=== PATIENT | female | born 1980 | race Caucasian/White ===

== ENCOUNTER 2021-01-09 10:29 | Observation (INO) | payer SELFPAY ==
[2021-01-09] VITALS (10 sets, daily range): BP systolic 124–161; BP diastolic 74–115; PULSE 80–108; RESP 16–22; TEMP 36.3–37; O2SAT 97–99; BMI 40.3
--- NOTE | 2021-01-09 10:53 | XRR_ITS ---
PROCEDURE INFORMATION: Exam: XR Chest Exam date and time: 01/09/2021 10:53 AM Age: 40 years old Clinical indication: Pain; Radiating; Patient HX: History--cp that radiates around lt shoulder and to the upper back on the lt side. PT states it worsens upon inspiration; Additional info: Chest pain TECHNIQUE: Imaging protocol: XR of the chest. Views: 1 view. Total images: 1 COMPARISON: No relevant prior studies available. FINDINGS: Lungs: Nonspecific left lung base opacity favors atelectasis or pneumonia. Pleural spaces: Unremarkable. No pleural effusion. No pneumothorax. Heart/Mediastinum: Unremarkable. No cardiomegaly. Bones/joints: Unremarkable. XR/XR chest 1V portable [id number] IMPRESSION: Nonspecific left lung base opacity favors atelectasis or pneumonia. Radiation Dose CTDIVOL = (mGy): DLP = (mGy-cm)
--- NOTE | 2021-01-09 10:53 | ECG_ITS ---
[facility] Test Date: 2021-01-09 Pat Name: Annelise Cervantes Department: Room: Gender: Female Pharmacy Student: : 1980 Requested By: Jaiden Lam Order Number: [id number] Roma MD: Tobi Riojas M.D. Measurements Intervals [place] Rate: 88 P: 53 AR: 160 QRS: -5 QRSD: 97 T: 34 QT: 337 QTc: 408 Interpretive Statements SINUS RHYTHM POSSIBLE RIGHT VENTRICULAR CONDUCTION DELAY [RSR (QR) IN V1/V2] No previous ECG available for comparison Electronically Signed On 01-11-2021 13:22:28 DIRECTOR OF INTELLIGENCE by Tobi Riojas M.D. [email or web address] [email or web address] [email or web address]/[id number]
--- NOTE | 2021-01-09 11:04 | W.ED.CHESTPA ---
HPI - Chest Pain General: Chief Complaint: Chest Pain Stated Complaint: R SHOULDER PAIN THROUGH TO BACK, SEEN BY DOC X 2 Time Seen by Provider: 01/09/21 11:02 History of Present Illness: HPI narrative: Ms. Cervantes is a 40-year-old lady without significant past medical history who presents to the emergency department due to chest pain or shortness of breath. Symptoms began approximately 2 weeks ago and she describes initial URI which subsequently moved down to her chest. Congestion, cough, generalized malaise. She saw her primary care provider was given an inhaler, short course of antibiotics and steroids and that seemed to improve however on Tuesday she subsequently developed left anterior chest pain which is sharp and worse with movement and deep inspiration. Intensity of symptoms is moderate. Course has been worsening. She struggled last night to be comfortable enough to sleep and had to sleep in a chair. No similar episodes in the past. Does have positive family history for blood clots. No other specific changes in health, exacerbating, or alleviating factors identified. Review of Systems General: Reports: 10 or more systems reviewed and unremarkable except in HPI and below PFSH ED PFSH: Medical History (Updated 01/12/21 @ 23:51 by Mahamed Jiang MD) Tobacco dependency Surgical History (Updated 01/09/21 @ 16:31 by Patric Lambert MD) History of tonsillectomy Family History Other CAD (coronary artery disease) Social History (Updated 01/09/21 @ 16:33 by Patric Lambert MD) Smoking and tobacco status: current every day smoker Alcohol intake: never Physical Exam Narrative: EXAM NARRATIVE: GENERAL/CONSTITUTIONAL - somewhat ill-appearing. Uncomfortable. Eyes - PERRL, no conjunctival injection ENMT - Atraumatic external nose and ears. Moist mucous membranes NECK - supple. trachea midline CARDIOVASCULAR - regular rate and rhythm. Peripheral pulses 2+ and equal RESPIRATORY -coarse to auscultation bilaterally. Increased respiratory rate. ABDOMEN/GI - Nontender/Nondistended. MSK - Extremities without obvious deformity or tenderness to palpation SKIN - Warm, Dry NEURO - alert and appropriately oriented. Moves all extremities equally. Course ED course: - Patient was seen and evaluated by me at bedside - Patient placed on cardiac monitors, IV access obtained - Initial evaluation notable for uncomfortable appearing. Worse chest pain with deep inspiration. -Symptom treatment ordered - Labs notable for leukocytosis. No significant electrolyte abnormality. Negative troponin and normal BNP. Covid negative. Given patient's description of symptoms and relatively unimpressive x-ray as noted D-dimer ordered and was elevated. - Imaging notable for ED read of x-ray without significant finding. Radiology read with possible pneumonia on the left lower lobe. Given elevated D-dimer CTA warranted and notes bilateral pulmonary embolisms with likely left lower lobe pulmonary infarction. - Upon serial reexamination after treatment the patient was mildly improved though did require repeat analgesia. -Lovenox ordered - Based on patient history, evaluation, labs, and imaging as interpreted the most likely cause of the patient's condition is multiple pulmonary embolisms with pulmonary infarction - The results of ED evaluation were discussed with the patient including plan for admission due to requirement for level of care not available if discharged to prevent significant worsening/deterioration. -Hospitalist service contacted and agreed admit the patient. - Patient was admitted without further deterioration or significant events. Vital Signs: Vital signs: Vital Signs Temperature 98.4 F 01/10/21 07:20 Pulse Rate 110 H 01/10/21 07:20 Respiratory Rate 18 01/10/21 08:37 Blood Pressure 112/75 01/10/21 07:20 Pulse Oximetry 93 01/10/21 07:20 MDM - Chest Pain Medical Records: Attestation: I reviewed the patient's medical records. Lab Data: Attestation: I reviewed the patient's lab results. Labs: Lab Results 01/09/21 01/09/21 01/09/21 11:35 11:35 11:35 WBC 15.3 10^3/uL H 10 ^3/uL (4.0-10.0) RBC 4.45 10^6/uL 10^6 /uL (4.1-5.3) Hgb 12.2 g/dL g/dL (11.5-15.3) Hct 38.1 % % (37.0-47.0) MCV 85.6 fl fl (81-99) MCH 27.4 pg L pg (28.0-34.0) MCHC 32.0 g/dL g/dL (30.0-36.0) RDW 13.7 % % (12.1-15.1) Plt Count 288 10^3/cmm 10^3 /cmm (130-400) MPV 9.3 fL fL (7.4-10.4) Neut % (Auto) 74.6 % % Lymph % (Auto) 16.1 % % Faulkner % (Auto) 8.0 % % Eos % (Auto) 0.4 % % Baso % (Auto) 0.4 % % Neut # (Auto) 11.42 10^3/uL H 1 0^3/uL (1.8-7.7) Lymph # (Auto) 2.5 10^3/uL 10^3/ uL (0.8-4.8) Faulkner # (Auto) 1.2 10^3/uL H 10^ 3/uL (0.2-0.9) Eos # (Auto) 0.1 10^3/uL 10^3/ uL (0.0-0.8) Baso # (Auto) 0.1 10^3/uL 10^3/ uL (0.0-0.1) Nucleated RBC % (a uto) 0 % % Nucleated RBCs # 0.0 /100WBC /100W BC D-Dimer Sodium 136 mmol/L mmol/L (136-145) Potassium 4.3 mmol/L mmol/L (3.5-5.1) Chloride 104 mmol/L mmol/L (98-107) Carbon Dioxide 23 mmol/L mmol/L (22-29) Anion Gap 13.3 (5-19) BUN 12 mg/dL mg/dL (6-20) Creatinine 0.6 mg/dL mg/dL (0.5-0.9) GFR Calculation 111.3 mL/min mL/m in (90-130) Glucose 82 mg/dL mg/dL (65-115) Calculated Osmolal ity 281 mOsm/kg L mOs m/kg (285-295) Calcium 9.1 mg/dL mg/dL (8.5-10.5) Troponin T Baselin e 6 ng/L ng/L (0-10) Troponin T 120 Min [place] Delta Troponin T NT-Pro-B Natriuret Pep Lipase 26 U/L U/L (13-60) HCG, Qual 01/09/21 01/09/21 01/09/21 11:35 11:35 11:35 WBC RBC Hgb Hct MCV MCH MCHC RDW Plt Count MPV Neut % (Auto) Lymph % (Auto) Faulkner % (Auto) Eos % (Auto) Baso % (Auto) Neut # (Auto) Lymph # (Auto) [place] # (Auto) Eos # (Auto) Baso # (Auto) Nucleated RBC % (a uto) Nucleated RBCs # D-Dimer 1.62 ug/mIFEU H u g/mIFEU (0-0.59) Sodium Potassium Chloride Carbon Dioxide Anion Gap BUN Creatinine GFR Calculation Glucose Calculated Osmolal ity Calcium Troponin T Baselin e Troponin T 120 Min [place] Delta Troponin T NT-Pro-B Natriuret Pep 15 pg/mL pg/mL (0-125) Lipase HCG, Qual Negative (Negative) 01/09/21 13:44 WBC RBC Hgb Hct MCV MCH MCHC RDW Plt Count MPV Neut % (Auto) Lymph % (Auto) [place] % (Auto) Eos % (Auto) Baso % (Auto) Neut # (Auto) Lymph # (Auto) [place] # (Auto) Eos # (Auto) Baso # (Auto) Nucleated RBC % (a uto) Nucleated RBCs # D-Dimer Sodium Potassium Chloride Carbon Dioxide Anion Gap BUN Creatinine GFR Calculation Glucose Calculated Osmolal ity Calcium Troponin T Baselin e Troponin T 120 Min [place] 6.00 ng/L ng/L (0-10) Delta Troponin T 0 ABS# ABS# (0-10) NT-Pro-B Natriuret Pep Lipase HCG, Qual EKG Data^: EKG 1: Attestation: I personally reviewed and interpreted this EKG as follows: EKG interpretation date: 01/09/21 EKG interpretation time: 11:33 Interpretation: BorderlineTwelve-lead EKG shows a regular rhythm at a rate of 88. GA interval 160, QRS duration 97, QTc 382. Borderline axis. Interpretation: Sinus rhythm with nonspecific abnormalities. Discharge Plan Discharge Patient Disposition: Admitted As Inpatient Admit Provider: Patric Lambert Clinical Impression: Pulmonary emboli, Chest pain, Embolism, pulmonary with infarction Condition: Stable Discharge Diet: Regular Discharge Activity: Resume usual activity Coding Level of Care Code ED School Psychology Specialist for Chg Lionel
[2021-01-09] MEDS: acetaminophen 500 mg Tablet PO (11:43)
[2021-01-09] MEDS: methocarbamol 750 mg Tablet PO (11:43)
[2021-01-09] MEDS: morphine 4 mg/mL SDV 1 mL IVP (11:43)
[2021-01-09 11:46] LABS: Basophils # 0.1 10^3/uL (0.0-0.1); Basophils % 0.4 %; Eosinophils # 0.1 10^3/uL (0.0-0.8); Eosinophils % 0.4 %; Hematocrit 38.1 % (37.0-47.0); Hemoglobin 12.2 g/dL (11.5-15.3); Lymphocytes # 2.5 10^3/uL (0.8-4.8); Lymphocytes % 16.1 %; Mean Corpuscular Hemoglobin 27.4 pg (28.0-34.0); Mean Corpuscular Volume 85.6 fl (81-99); Mean Platelet Volume 9.3 fL (7.4-10.4); Monocytes # 1.2 10^3/uL (0.2-0.9); Neutrophils # 11.42 10^3/uL (1.8-7.7); Neutrophils % 74.6 %; Nucleated Red Blood Cells % 0 %; Platelet Count 288 10^3/cmm (130-400); Red Blood Count 4.45 10^6/uL (4.1-5.3); Red Cell Distribution Width 13.7 % (12.1-15.1); White Blood Count 15.3 10^3/uL (4.0-10.0)
[2021-01-09 12:15] LABS: Troponin(5th) Baseline 6 ng/L (0-10)
[2021-01-09 12:19] LABS: Anion Gap 13.3 (5-19); Blood Urea Nitrogen 12 mg/dL (6-20); Calcium 9.1 mg/dL (8.5-10.5); Carbon Dioxide 23 mmol/L (22-29); Chloride 104 mmol/L (98-107); Glomerular Filtration Rate 111.3 mL/min (90-130); Glucose 82 mg/dL (65-115); Lipase 26 U/L (13-60); Osmolality Calculated 281 mOsm/kg (285-295); Potassium 4.3 mmol/L (3.5-5.1); Sodium 136 mmol/L (136-145)
[2021-01-09 12:40] LABS: D Dimer 1.62 ug/mIFEU (0-0.59)
--- NOTE | 2021-01-09 12:53 | ECG_ITS ---
[facility] Test Date: 2021-01-09 Pat Name: Annelise Cervantes Department: Room: Gender: Female Interactive Media Specialist: : 1980 Requested By: Jaiden Lam Order Number: [id number] Roma MD: Tobi Roijas M.D. Measurements Intervals [place] Rate: 76 P: 50 MS: 159 QRS: -8 QRSD: 94 T: 32 QT: 361 QTc: 407 Interpretive Statements SINUS RHYTHM POSSIBLE RIGHT VENTRICULAR CONDUCTION DELAY [RSR (QR) IN V1/V2] Compared to ECG 01/09/2021 11:30:54 No significant changes Electronically Signed On 01-12-2021 17:32:54 BEER MAKER by Tobi Riojas M.D. [id number]
--- NOTE | 2021-01-09 12:54 | CTR_ITS ---
PROCEDURE INFORMATION: Exam: CTA Chest With Contrast Exam date and time: 01/09/2021 12:54 PM Age: 40 years old Clinical indication: Patient HX: Chest and back pain on breathing. Recent upper respiratory infection; Additional info: D dimer elevated, pleuritic chest pain TECHNIQUE: Imaging protocol: Computed tomographic angiography of the chest with contrast. 3D rendering (Not supervised by radiologist): MIP reconstructed images were created by the technologist. Radiation optimization: All CT scans at this facility use at least one of these dose optimization techniques: automated exposure control; mA and/or kV adjustment per patient size (includes targeted exams where dose is matched to clinical indication); or iterative reconstruction. Contrast material: OMNI 350; Contrast volume: 65 ml; Contrast route: INTRAVENOUS (IV); COMPARISON: CR XR chest 1V portable [id number] 01/09/2021 11:03 AM RADIATION DOSE METRICS: Total DLP (mGy-cm): 535.9 FINDINGS: Pulmonary arteries: Nonocclusive pulmonary emboli right upper lobe with involvement of the proximal anterior, apical and posterior segmental branches. Pulmonary embolus at the origin of the right middle lobe pulmonary artery extending into the medial segment without occlusion, also extending into the lower lobe, with nonocclusive involvement of the lateral, posterior basilar and medial segmental branches. Left pulmonary artery embolus at the origin of the left upper lobe pulmonary artery with nonocclusive extension into the anterior, apical and posterior segmental branches. Left lower lobe pulmonary artery embolus extending into the lingular pulmonary artery without occlusion, and involving the left lower lobe anterolateral and posterior basilar segment arteries with areas of subsegmental occlusion, involving the superior and medial basilar segments without occlusion. Aorta: No aortic aneurysm. No aortic dissection. Thyroid: The bilateral thyroid lobes are unremarkable. Lungs: There is peripheral airspace opacity in the left lower lobe anterolateral, posterior basilar segments. Pleural spaces: Small left pleural effusion. No pneumothorax. Heart: Mild flattening of the cardiac interventricular septum suggesting possible mild elevation of right cardiac pressures. Lymph nodes: No enlarged lymph nodes. Bones/joints: No acute abnormality identified. No acute fracture. Soft tissues: Unremarkable. CT/CT angio chest PE protcl [id number] IMPRESSION: 1. Bilateral pulmonary artery emboli. 2. Peripheral airspace opacity left lower lobe basilar segments. Probable pulmonary infarction. 3. Mild flattening of the cardiac interventricular septum. Possible mild elevation of right cardiac pressures. 4. Small left pleural effusion. Radiation Dose CTDIVOL = (mGy): DLP = 535.9 (mGy-cm)
[2021-01-09] MEDS: iohexol 350 mg/mL 100 mL Btl IV (13:53)
[2021-01-09 14:17] LABS: Troponin 5 2HR Delta 0 ABS# (0-10)
[2021-01-09 15:07] LABS: NT Pro B Type Natriuretic Pept 15 pg/mL (0-125)
[2021-01-09] MEDS: enoxaparin 120 mg/0.8 mL Syringe SUBCUT (15:12)
[2021-01-09] MEDS: LORazepam 0.5 mg Tablet PO (15:22)
--- NOTE | 2021-01-09 16:24 | P.HP_ITS ---
Providers/Chief Complaint Primary Care Provider: Markie Hernandez MD Chief Complaint: R SHOULDER PAIN THROUGH TO BACK, SEEN BY DOC X 2 History of Present Illness Annelise Cervantes is a 40 year old female who presents to the hospital with c omplaints of some shortness of breath, chest pain with inspiration for the last 5 days. She has not had any significant cough. She reports no hemoptysis. She reports no leg swelling, or edema. She has had no recent trips or immobility. She denies any fevers, history of Covid, exposure to Covid. She is not vaccinated. She reports a significant family history of blood clots with her mother, grandmother, aunts, uncles, and a cousin with blood clots. Nobody has ever had any specific diagnosis regarding an inherited blood clot disorder. She was seen in clinic, and started on some prednisone doxycycline and an inhaler. She has not been tested for Covid. No blood in stool, no black or tarry stools. Last menstrual period was several weeks ago. Review of Systems General: Reports: 10 or more systems reviewed and unremarkable except in HPI and below Const: Denies: fever(s) Eyes: Denies: change in vision ENMT: Denies: throat pain Card: Reports: chest pain Resp: Reports: dyspnea; Denies: productive cough or non-productive cough GI: Denies: abdominal pain, nausea, vomiting, hematochezia or melena : Denies: flank pain Musc: Denies: neck pain Skin/Breast: Denies: rash Neuro: Denies: headache(s) Psych: Denies: anxiety or depression Endo: Denies: polyuria Nawaf/Lymph: Denies: easy bruising All/Imm: Denies: urticaria Medications/Allergies Home Medications Medication Instructions Recorded Confirmed Last Taken Type No Known Home Medications 01/09/21 01/09/21 Unknown History Allergies Allergy/AdvReac Type Severity Reaction Status Date / Time No Known Allergies Allergy Unverified 01/09/21 15:14 PFSH Acute PFSH: Medical History (Updated 01/09/21 @ 16:43 by Patric Lambert MD) Tobacco dependency Surgical History (Updated 01/09/21 @ 16:31 by Patric Lambert MD) History of tonsillectomy Family History Other CAD (coronary artery disease) Social History (Updated 01/09/21 @ 16:33 by Patric Lambert MD) Smoking and tobacco status: current every day smoker Alcohol intake: never Vitals/I&O/Wt Last Vital Signs Temp 97.3 F L 01/09/21 10:39 Pulse 87 01/09/21 15:13 Resp 18 01/09/21 15:13 BP 161/115 01/09/21 15:13 Pulse Ox 98 01/09/21 15:13 Weight last 48 hrs Weight 113.398 kg Physical Exam Narrative: EXAM NARRATIVE: Female, with pain on deep inspiration HEENT: Physically round. Oropharynx clear. Neck is supple no lymphadenopathy or thyromegaly Cardiovascular regular rate and rhythm without murmur, no S3 or S4 Lungs clear no wheezing or crackles. Diminished breath sounds are noted bilaterally Abdomen is soft nontender with positive bowel sounds. Obese. No obvious organomegaly exam is deferred Extremities no cyanosis clubbing or edema, cap refill brisk Skin no rash Neuro no focal deficits. Data : 01/09/21 11:35 01/09/21 11:35 Other data: Chest x-ray blunting of left costophrenic angle CTA bilateral pulmonary artery emboli, possible left lower lobe pulmonary infarction, possible mild elevation of cardiac pressures, small effusion EKG sinus rhythm, borderline axis, RSR prime possible right ventricular conduction delay. A&P Assessment and plan (1) Pulmonary emboli: Full dose anticoagulation started in the emergency department in the form of Lovenox Questionable right heart strain not seen on CT. Patient currently with heart rate less than 100, is not hypotensive, and is maintaining saturation on room air Check echocardiogram for right heart strain Covid testing secondary to presentation of shortness of breath, as we are in a pandemic and this can increase risk of pulmonary embolism Concern of pulmonary infarct in the left. Oxycodone for pain. Check venous duplex Discussed with patient multiple clotting factors can be checked, and referral to hematology as an outpatient, and when she is completed her treatment for pulmonary embolism. Check serum hCG. Discussed risks of medication if she should become . Encouraged her not to become . Status: Acute (2) Tobacco dependency: Encourage cessation Status: Acute Additional A&P Information Full code Lovenox will suffice for DVT prophylaxis Attestations Medical Necessity Statement*: Will need less than 2 midnight stay for treatment of pulmonary embolism. Time Spent in Patient Care: Greater than 35 minutes Coding Level of Care Code Acute Machine Long Goods Helper for Jarocho Santosd Diagnoses Pulmonary emboli I26.99 Tobacco dependency F17.200
[2021-01-09 16:47] LABS: HCG, Serum Qual Negative (Negative)
--- NOTE | 2021-01-09 16:53 | ECG_ITS ---
[facility] Test Date: 2021-01-09 Pat Name: Annelise Cervantes Department: Room: Gender: Female Meat Lugger: : 1980 Requested By: Jaiden Lam Order Number: [id number] Roma MD: Tobi Riojas M.D. Measurements Intervals [place] Rate: 94 P: 52 AR: 157 QRS: -6 QRSD: 89 T: 32 QT: 331 QTc: 415 Interpretive Statements SINUS RHYTHM LOW QRS VOLTAGE IN PRECORDIAL LEADS [QRS DEFLECTION < 1.0 mV IN CHEST LEADS] POSSIBLE RIGHT VENTRICULAR CONDUCTION DELAY [RSR (QR) IN V1/V2] Compared to ECG 01/09/2021 12:58:33 Low QRS voltage now present Electronically Signed On 01-12-2021 17:31:23 SCHOOL ADMISSIONS REPRESENTATIVE by Tobi Riojas M.D. [email or web address]/[id number]
[2021-01-09 17:35] LABS: SARS Covid-2 Antigen Negative (Negative)
[2021-01-09 18:09] LABS: Troponin 5 6HR Delta 0 ng/L (0-12)
[2021-01-09] MEDS: oxyCODONE 5 mg IR Tab/Cap PO (19:59)
--- NOTE | 2021-01-09 20:30 | PC.NURSE ---
i reported high reps 20 to nurse
[2021-01-09] MEDS: acetaminophen 325 mg Tablet 650 MG PO (21:37)
--- NOTE | 2021-01-09 21:48 | PC.NURSE ---
hospitalisit Dr Parish paged in regards to pain level 09/16. Patient states that the PRN oxycodone 5 mg was not effective. Did state that the Ativan administered in ER did help to relieve anxiety/pain. Waiting on reply.
--- NOTE | 2021-01-09 22:21 | PC.NURSE ---
1855 ER report received from Arleen ÁLVAREZ. Patient arrived on unit at 1930. Patient rates pain at a 7/10. PRN administered. Denies SOB at rest/ verbalizes SOB with activity. No other needs voiced at this time.
--- NOTE | 2021-01-09 22:35 | PC.NURSE ---
hospitalist Dr Parish sent secure message through voalte per charge nurse Kirstie jung. Waiting on reply.
[2021-01-09] MEDS: morphine 4 mg/mL SDV 1 mL 2 MG IVP (23:24)
[2021-01-09] MEDS: ALPRAZolam 0.5 mg Tablet 0.25 MG PO (23:25)
--- NOTE | 2021-01-10 01:39 | PC.NURSE ---
Patient rates pain at a 05/17/ PRN pain medication at this time
[2021-01-10 03:03] VITALS: RESP 16; O2SAT 99
[2021-01-10] MEDS: oxyCODONE 5 mg IR Tab/Cap PO ×2 (03:03→08:37)
[2021-01-10] MEDS: enoxaparin 120 mg/0.8 mL Syringe 110 MG SUBCUT (03:04)
[2021-01-10 04:00] VITALS: BP 120/71; PULSE 78; RESP 17; TEMP 36.8; O2SAT 98
[2021-01-10] MEDS: morphine 4 mg/mL SDV 1 mL 2 MG IVP (05:22)
[2021-01-10] MEDS: acetaminophen 325 mg Tablet 650 MG PO ×2 (05:24→10:39)
[2021-01-10 05:56] VITALS: PULSE 85
[2021-01-10 06:26] LABS: Basophils # 0.1 10^3/uL (0.0-0.1); Basophils % 0.4 %; Eosinophils # 0.1 10^3/uL (0.0-0.8); Eosinophils % 0.5 %; Hematocrit 42.8 % (37.0-47.0); Hemoglobin 12.5 g/dL (11.5-15.3); Lymphocytes # 4.5 10^3/uL (0.8-4.8); Lymphocytes % 32.4 %; Mean Corpuscular HGB Conc 29.2 g/dL (30.0-36.0); Mean Corpuscular Hemoglobin 26.9 pg (28.0-34.0); Mean Corpuscular Volume 92.2 fl (81-99); Mean Platelet Volume 9.6 fL (7.4-10.4); Monocytes # 1.3 10^3/uL (0.2-0.9); Monocytes % 9.3 %; Neutrophils # 7.96 10^3/uL (1.8-7.7); Neutrophils % 57.1 %; Nucleated Red Blood Cells % 0 %; Platelet Count 283 10^3/cmm (130-400); Red Blood Count 4.64 10^6/uL (4.1-5.3); Red Cell Distribution Width 13.6 % (12.1-15.1); White Blood Count 13.9 10^3/uL (4.0-10.0)
--- NOTE | 2021-01-10 06:28 | PC.NURSE ---
patient is crying and rating right shoulder/back pain at a 10/10. PRN pain medication morphine and tylenlol administered recently. Ice applied. No relief with any of these measures. Secure message sent to hospitalist Dr Parish/ waiting on reply.
[2021-01-10 06:29] VITALS: PULSE 92; O2SAT 97
[2021-01-10] MEDS: ketorolac 30 mg/mL INJ 15 MG IVP (06:49)
[2021-01-10 07:00] LABS: Blood Urea Nitrogen 16 mg/dL (6-20); Calcium 8.9 mg/dL (8.5-10.5); Carbon Dioxide 19 mmol/L (22-29); Chloride 102 mmol/L (98-107); Glomerular Filtration Rate 137.4 mL/min (90-130); Glucose 78 mg/dL (65-115); Osmolality Calculated 280 mOsm/kg (285-295); Sodium 135 mmol/L (136-145)
[2021-01-10 07:20] VITALS: BP 112/75; PULSE 110; RESP 16; TEMP 36.9; O2SAT 93
[2021-01-10 08:37] VITALS: RESP 18
--- NOTE | 2021-01-10 12:23 | P.DS_ITS ---
Discharge Providers Date of Admission: 01/09/21 15:01 Date of Discharge: January 10, 2021 Attending Provider at Admission: Patric Lambert MD Attending Provider at Discharge: Leonel Ya MD Primary Care Provider: Markie Hernandez MD Diagnoses at Discharge Discharge Diagnosis (1) Pulmonary emboli: Status: Acute (2) Tobacco dependency: Status: Acute Reason for Visit Reason for Visit: R SHOULDER PAIN THROUGH TO BACK, SEEN BY DOC X 2 Hospital Course Hospital Course Annelise Cervantes is a 40 year old female who presents to the hospital with complaints of some shortness of breath, chest pain with inspiration for the last 5 days. She has not had any significant cough. She reports no hemoptysis. She reports no leg swelling, or edema. She has had no recent trips or immobility. She denies any fevers, history of Covid, exposure to Covid. She is not vaccinated. She reports a significant family history of blood clots with her mother, grandmother, aunts, uncles, and a cousin with blood clots. Nobody has ever had any specific diagnosis regarding an inherited blood clot disorder. CT done in the ER showed bilateral pulmonary emboli with possible left lower lobe pulmonary infarction with small effusion. Patient during hospitalization remained hemodynamically stable and on room air though has been complaining of occasional pain on taking deep inspiration. She was started on anticoagulation. Echocardiogram and lower limb Dopplers were done prior to discharge. Blood work for inherited blood clot disorders are sent out. Patient was discharged in hemodynamically stable condition on oral Eliquis. Coupon was presented to the patient before discharge. She will be discharged on Toradol and tramadol as needed for pain for next 1 week. She was counseled in detail regarding continuous incentive spirometry. She was also counseled in detail regarding medications and lifestyle modification secondary to possible inherited blood clots. Patient is to follow-up with her primary care provider within next 1 week and possibly with live source operator within next 1 month. Physical Exam Narrative: EXAM NARRATIVE: Female, with pain on deep inspiration HEENT: Physically round. Oropharynx clear. Neck is supple no lymphadenopathy or thyromegaly Cardiovascular regular rate and rhythm without murmur, no S3 or S4 Lungs clear no wheezing or crackles. Diminished breath sounds are noted bilaterally Abdomen is soft nontender with positive bowel sounds. Obese. No obvious organomegaly exam is deferred Extremities no cyanosis clubbing or edema, cap refill brisk Skin no rash Neuro no focal deficits. Discharge Data Data Completed and Pending: Completed Studies During Hospitalization Category Date Time Status CT angio chest PE protcl [id number] Urge nt Cat Scan 01/09/21 12:54 Completed XR chest 1V nalini ble [id number] Stat Exams 01/09/21 10:53 Completed Pending at discharge Category Date Time Status Antithrombin III Activity Routine Lab 01/10/21 11:08 Ordered Factor 5 Leiden M utation Stat Lab 01/10/21 11:08 Ordered Folate Level Rout ine Lab 01/10/21 11:08 Ordered Homocysteine Rout ine Lab 01/10/21 11:08 Ordered [facility] SARS-CoV-2 RNA Routine Lab 01/09/21 17:02 Received Total Iron Bindin g Capacity Routine Lab 01/10/21 11:08 Ordered Vitamin B12 Routi ne Lab 01/10/21 11:08 Ordered Von Willebrand Fa ctor AG Routine Lab 01/10/21 11:08 [place] [id number] Routin e Ultrasound 01/10/21 19:35 Ordered CV. echo complete * [id number] Routine Ultrasound 01/10/21 19:35 Ordered Labs from last 24 hours 01/10/21 01/10/21 01/09/21 06:00 06:00 17:28 WBC 13.9 H RBC 4.64 Hgb 12.5 Hct 42.8 MCV 92.2 D MCH 26.9 L MCHC 29.2 L D RDW 13.6 Plt Count 283 MPV 9.6 Neut % (Auto) 57.1 Lymph % (Auto) 32.4 Brooke % (Auto) 9.3 Eos % (Auto) 0.5 Baso % (Auto) 0.4 Neut # (Auto) 7.96 H Lymph # (Auto) 4.5 Brooke # (Auto) 1.3 H Eos # (Auto) 0.1 Baso # (Auto) 0.1 Nucleated RBC % (a uto) 0 Nucleated RBCs # 0.0 D-Dimer Sodium 135 L Potassium 4.0 Chloride 102 Carbon Dioxide 19 L Anion Gap 18.0 BUN 16 Creatinine 0.5 GFR Calculation 137.4 H Glucose 78 Calculated Osmolal ity 280 L Calcium 8.9 Troponin T 120 Min [place] Delta Troponin T Troponin T Hi Sens 6Hr 6.00 Troponin T Hi Sens 6Hr Delta 0 NT-Pro-B Natriuret Pep HCG, Qual SARS-CoV-2 RNA (RT -PCR) SARS-CoV-2 Ag (Rap id) 01/09/21 01/09/21 01/09/21 17:02 17:02 13:44 WBC RBC Hgb Hct MCV MCH MCHC RDW Plt Count MPV Neut % (Auto) Lymph % (Auto) Brooke % (Auto) Eos % (Auto) Baso % (Auto) Neut # (Auto) Lymph # (Auto) Brooke # (Auto) Eos # (Auto) Baso # (Auto) Nucleated RBC % (a uto) Nucleated RBCs # D-Dimer Sodium Potassium Chloride Carbon Dioxide Anion Gap BUN Creatinine GFR Calculation Glucose Calculated Osmolal ity Calcium Troponin T 120 Min [place] 6.00 Delta Troponin T 0 Troponin T Hi Sens 6Hr Troponin T Hi Sens 6Hr Delta NT-Pro-B Natriuret Pep HCG, Qual SARS-CoV-2 RNA (RT -PCR) Pending SARS-CoV-2 Ag (Rap id) Negative 01/09/21 01/09/21 01/09/21 11:35 11:35 11:35 WBC RBC Hgb Hct MCV MCH MCHC RDW Plt Count MPV Neut % (Auto) Lymph % (Auto) Brooke % (Auto) Eos % (Auto) Baso % (Auto) Neut # (Auto) Lymph # (Auto) Brooke # (Auto) Eos # (Auto) Baso # (Auto) Nucleated RBC % (a uto) Nucleated RBCs # D-Dimer 1.62 H Sodium Potassium Chloride Carbon Dioxide Anion Gap BUN Creatinine GFR Calculation Glucose Calculated Osmolal ity Calcium Troponin T 120 Min [place] Delta Troponin T Troponin T Hi Sens 6Hr Troponin T Hi Sens 6Hr Delta NT-Pro-B Natriuret Pep 15 HCG, Qual Negative SARS-CoV-2 RNA (RT -PCR) SARS-CoV-2 Ag (Rap id) 01/09/21 11:35 WBC RBC Hgb Hct MCV MCH MCHC RDW Plt Count MPV Neut % (Auto) Lymph % (Auto) Brooke % (Auto) Eos % (Auto) Baso % (Auto) Neut # (Auto) Lymph # (Auto) Brooke # (Auto) Eos # (Auto) Baso # (Auto) Nucleated RBC % (a uto) Nucleated RBCs # D-Dimer Sodium Potassium Chloride Carbon Dioxide Anion Gap BUN Creatinine GFR Calculation Glucose Calculated Osmolal ity 281 L Calcium Troponin T 120 Min [place] Delta Troponin T Troponin T Hi Sens 6Hr Troponin T Hi Sens 6Hr Delta NT-Pro-B Natriuret Pep HCG, Qual SARS-CoV-2 RNA (RT -PCR) SARS-CoV-2 Ag (Rap id) Addt'l Data from Hospital Stay: Laboratory Results WBC 13.9 10^3/uL (4.0 -10.0) H 01/10/21 06:00 RBC 4.64 10^6/uL (4.1 -5.3) 01/10/21 06:00 Hgb 12.5 g/dL (11.5-1 5.3) 01/10/21 06:00 Hct 42.8 % (37.0-47.0 ) 01/10/21 06:00 MCV 92.2 fl (81-99) D 01/10/21 06:00 MCH 26.9 pg (28.0-34. 0) L 01/10/21 06:00 MCHC 29.2 g/dL (30.0-3 6.0) L D 01/10/21 06:00 RDW 13.6 % (12.1-15.1 ) 01/10/21 06:00 Plt Count 283 10^3/cmm (130 -400) 01/10/21 06:00 MPV 9.6 fL (7.4-10.4) 01/10/21 06:00 Neut % (Auto) 57.1 % 01/10/21 06:00 Lymph % (Auto) 32.4 % 01/10/21 06:00 Brooke % (Auto) 9.3 % 01/10/21 06:00 Eos % (Auto) 0.5 % 01/10/21 06:00 Baso % (Auto) 0.4 % 01/10/21 06:00 Neut # (Auto) 7.96 10^3/uL (1.8 -7.7) H 01/10/21 06:00 Lymph # (Auto) 4.5 10^3/uL (0.8- 4.8) 01/10/21 06:00 Brooke # (Auto) 1.3 10^3/uL (0.2- 0.9) H 01/10/21 06:00 Eos # (Auto) 0.1 10^3/uL (0.0- 0.8) 01/10/21 06:00 Baso # (Auto) 0.1 10^3/uL (0.0- 0.1) 01/10/21 06:00 Nucleated RBC % (a uto) 0 % 01/10/21 06:00 Nucleated RBCs # 0.0 /100WBC 01/10/21 06:00 D-Dimer 1.62 ug/mIFEU (0- 0.59) H 01/09/21 11:35 Sodium 135 mmol/L (136-1 45) L 01/10/21 06:00 Potassium 4.0 mmol/L (3.5-5 .1) 01/10/21 06:00 Chloride 102 mmol/L (98-10 7) 01/10/21 06:00 Carbon Dioxide 19 mmol/L (22-29) L 01/10/21 06:00 Anion Gap 18.0 (5-19) 01/10/21 06:00 BUN 16 mg/dL (6-20) 01/10/21 06:00 Creatinine 0.5 mg/dL (0.5-0. 9) 01/10/21 06:00 GFR Calculation 137.4 mL/min (90- 130) H 01/10/21 06:00 Glucose 78 mg/dL (65-115) 01/10/21 06:00 Calculated Osmolal ity 280 mOsm/kg (285- 295) L 01/10/21 06:00 Calcium 8.9 mg/dL (8.5-10 .5) 01/10/21 06:00 Troponin T Baselin e 6 ng/L (0-10) 01/09/21 11:35 Troponin T 120 Min [place] 6.00 ng/L (0-10) 01/09/21 13:44 Delta Troponin T 0 ABS# (0-10) 01/09/21 13:44 Troponin T Hi Sens 6Hr 6.00 ng/L (0-10) 01/09/21 17:28 Troponin T Hi Sens 6Hr Delta 0 ng/L (0-12) 01/09/21 17:28 NT-Pro-B Natriuret Pep 15 pg/mL (0-125) 01/09/21 11:35 Lipase 26 U/L (13-60) 01/09/21 11:35 HCG, Qual Negative (Negati ve) 01/09/21 11:35 SARS-CoV-2 Ag (Rap id) Negative (Negati ve) 01/09/21 17:02 Impressions Chest X-Ray 01/09/21 10:53 IMPRESSION: Nonspecific left lung base opacity favors atelectasis or pneumonia. Radiation Dose CTDIVOL = (mGy): DLP = (mGy-cm) Chest CTA 01/09/21 12:54 IMPRESSION: 1. Bilateral pulmonary artery emboli. 2. Peripheral airspace opacity left lower lobe basilar segments. Probable pulmonary infarction. 3. Mild flattening of the cardiac interventricular septum. Possible mild elevation of right cardiac pressures. 4. Small left pleural effusion. Radiation Dose CTDIVOL = (mGy): DLP = 535.9 (mGy-cm) ADDENDUM: 01/09/21 1419 THIS REPORT CONTAINS FINDINGS THAT MAY BE CRITICAL TO PATIENT CARE. The findings were verbally communicated by me to Dr. Mahamed Jiang, via telephone conference at 2:17 PM INTERNETWORKING TECHNICIAN on 01/09/2021. The findings were acknowledged and understood. Radiation Dose CTDIVOL = (mGy): DLP = 535.9 (mGy-cm) Vitals: Last Vital Signs Temp 98.4 F 01/10/21 07:20 Pulse 110 H 01/10/21 07:20 Resp 18 01/10/21 08:37 BP 112/75 01/10/21 07:20 Pulse Ox 93 01/10/21 07:20 Discharge Plan Discharge Patient Disposition: Home Condition: Stable Prescriptions: New ferrous gluconate 324 mg (37.5 mg iron) Tablet 324 mg PO BIDWM 30 Days Qty: 30 RF: 0 ketorolac 10 mg tablet 10 mg PO Q8H PRN (Reason: pain) 3 Days Qty: 7 RF: 0 Eliquis DVT-PE Treat 30D Start 5 mg (74 tabs) tablets,dose pack See Rx Instructions .ROUTE .COMPLEX Qty: 74 RF: 0 tramadol 50 mg tablet 50 mg PO BID PRN (Reason: pain) Qty: 14 RF: 0 No Action No Known Home Medications RF: 0 Discharge Orders: Discharge Order (Routine); Ordered 01/10/21 Ordered By: Leonel Ya Referrals: Gloria Huizar MD [Staff Physician] - 1 month (Significant family history of blood clots, new unprovoked pulmonary embolism in young female) Markie Hernandez MD [Primary Care Provider] - 7-10 days Discharge Diet: Regular Discharge Activity: Resume usual activity Patient Instructions: Iron Supplements (By mouth) (Duofer, Fe-20, Bifera, Sal- Iron), Ketorolac (By mouth) (Toradol), Tramadol (By mouth) (Ultram, Ultram ER, [place], Theratramadol-60, Qdolo), Apixaban (By mouth) (Eliquis), Pulmonary Embolism (DC), Opioid Safety Activity Restrictions/Additional Instructions: Please follow-up with your primary care provider within next 1 week. Please discuss the results of echocardiogram, blood work with a primary care provider. Please follow-up with a live source operator within next 1 month for further work-up thrombosis. Please do incentive spirometry as discussed in detail. Discharge Attestations Time Spent in Discharge Care*: greater than 30 min Specific Discharge Activities: educating patient, discussing with pcp/other providers, discussing with corrections caseworker/social workers/dc planners, documenting/other paperwork and evaluating patient/reviewing data Status at Discharge: Cognitive status at discharge: cognitively intact , Behavioral status at discharge: cooperative , Functional status at discharge: independent ambulation Overall status at discharge: patient is back to baseline Quality Metrics Clinical Quality Measures During this hospital stay, did patient experience: VTE Contraindication to Overlap Therapy: Overlap therapy prescribed VTE Discharge Education: Education about anticoagulant therapy/Care Notes given Deep Vein Thrombosis/Pulmonary Embolism Present on Admission: Yes and None Coding Level of Care Code Acute Chg FW DC note Diagnoses Pulmonary emboli I26.99 Tobacco dependency F17.200
[2021-01-10 13:58] LABS: Homocysteine 9.21; Iron 13 ug/dL (37-145); Percent Saturation 4.5 % (20-50); Total Iron Binding Capacity 288 mcg/dl; Unsaturated Iron Binding 275 ug/dL (112-347)
[2021-01-10 14:15] LABS: Vitamin B12 455 pg/mL (232-1245)
[2021-01-10 14:16] LABS: Folate Level 8.1 ng/mL (4.8-37.3)
--- NOTE | 2021-01-10 19:35 | USR_ITS ---
PROCEDURE INFORMATION: Exam: US Duplex Lower Extremity Veins, Bilateral Exam date and time: 01/10/2021 7:35 PM Age: 40 years old Clinical indication: Other: Pulmonary embolism; Additional info: Pe TECHNIQUE: Imaging protocol: Real-time duplex ultrasound of the extremities with 2-D boyer scale, color Doppler flow and spectral waveform analysis with image documentation. Complete exam focused on the bilateral lower extremity veins. COMPARISON: No relevant prior studies available. FINDINGS: Right deep veins: Unremarkable. The common femoral, femoral, proximal profunda femoral and popliteal veins are patent without thrombus. Normal Doppler waveforms. Normal compressibility and/or augmentation response. Right superficial veins: Saphenofemoral junction is patent without thrombus. Left deep veins: Unremarkable. The common femoral, femoral, proximal profunda femoral and popliteal veins are patent without thrombus. Normal Doppler waveforms. Normal compressibility and/or augmentation response. Left superficial veins: Saphenofemoral junction is patent without thrombus. Soft tissues: Unremarkable. US/[place] [id number] IMPRESSION: No evidence of deep vein thrombosis. Radiation Dose CTDIVOL = (mGy): DLP = (mGy-cm)
--- NOTE | 2021-01-10 19:35 | USCV_ITS ---
Annelise Cervantes Age: 40 Gender: F : 1980 Exam Date: 01/10/2021 11:10 Ordering Phys: Patric Lambert MD Technologist: Fartun Carvajal Exam Location: [facility] [place]_ Indication: PE, check for heart strain BP: / HR: 77 Rhythm: Sinus Technical Quality: Fair MEASUREMENTS (Male / Female) Normal Values 2D ECHO LV Diastolic Diameter PLAX 3.4 cm 4.2 - 5.9 / 3.9 - 5.3 cm LV Systolic Diameter PLAX 2.2 cm LV Chamber Size 3.3 cm IVS Diastolic Thickness 1.4 cm 0.6 - 1.0 / 0.6 - 0.9 cm IVS Systolic Thickness 1.7 cm LVPW Diastolic Thickness 1.1 cm 0.6 - 1.0 / 0.6 - 0.9 cm LVPW Systolic Thickness 1.3 cm RV Chamber Size 2.3 cm LVOT Diameter 2.0 cm LV Ejection Fraction 2D Teich 66.5 % LV Ejection Fraction MOD 2C 65.8 % LV Ejection Fraction 2C AL 69.6 % LA Diameter 3.3 cm LA Width 2.2 cm LA Height 4.1 cm RA Width 2.1 cm RA Height 4.3 cm Aorta at Sinotubular Diameter 3.0 cm M-MODE LV Diastolic Diameter MM 4.9 cm 4.2 - 5.9 / 3.9 - 5.3 cm LV Systolic Diameter MM 3.3 cm LV Ejection Fraction MM Teich 62.2 % IVS Diastolic Thickness MM 1.2 cm 0.6 - 1.0 / 0.6 - 0.9 cm IVS Systolic Thickness MM 1.4 cm LVPW Diastolic Thickness MM 1.2 cm 0.6 - 1.0 / 0.6 - 0.9 cm LVPW Systolic Thickness MM 1.2 cm RV Diastolic Diameter MM 1.2 cm Aortic Annulus Diameter 3.1 cm LA Ao Ratio MM 1.3 MV E Point Septal Separation 0.4 cm DOPPLER AV Peak Velocity 121.0 cm/s LVOT Peak Velocity 131.0 cm/s AV Area Cont Eq vti 3.2 cm squared AV Area Cont Eq pk 3.3 cm squared MV Area PHT 3.3 cm squared Mitral E to A Ratio 1.1 MV E' Velocity 43.0 cm/s Mitral E to MV E' Ratio 8.7 Mitral E to LV E' Lateral Ratio 7.5 Mitral E to LV E' Septal Ratio 10.4 TR Peak Velocity 222.8 cm/s TR Peak Gradient 19.8 mmHg TV Peak E Velocity 62.0 cm/s Right Atrial Pressure 3.0 mmHg Pulmonary Artery Systolic Pressu 22.8 mmHg RV Acceleration Time 0.1 s RV Ejection Time 0.3 s RV AcT/ET 0.3 FINDINGS Left Ventricle Normal left ventricular size. LV systolic function is normal with EF of 60 to 65%. No regional wall motion abnormalities. Normal diastolic filling pattern. Right Ventricle The right ventricle is normal in size and function. Right Atrium The right atrium is normal in size. Left Atrium The left atrium is normal in size. Mitral Valve Structurally normal mitral valve without significant stenosis or prolapse. There is trace mitral regurgitation. Aortic Valve Structurally normal aortic valve without significant sclerosis or stenosis. There is no aortic regurgitation. Tricuspid Valve Structurally normal tricuspid valve without significant stenosis. Mild tricuspid regurgitation. Insufficient TR jet to calculate RVSP. Pulmonic Valve Structurally normal pulmonic valve without significant stenosis. There is no pulmonic regurgitation. Pericardium Normal pericardium without effusion. Aorta Normal ascending aorta dimension. CONCLUSIONS LV systolic function is normal with EF of 60 to 65%. Normal diastolic function. Trace mitral regurgitation. Mild tricuspid regurgitation. No comparison studies are available. Tobi Riojas MD (Electronically Signed) Final Date: 10 January 2021 16:54 S
[2021-01-11 18:38] LABS: Quest SARS-CoV-2 RNA NOT DETECTED (NOT DETECTED)
[2021-01-14 04:23] LABS: Antithrombin III Activity 109 % normal (80-135)
[2021-01-14 13:08] LABS: Von Willebrand Factor AG 365 % (50-217)
[2021-01-14 19:57] LABS: Factor 5 Leiden Mutation NEGATIVE
== END 2021-01-10 13:56 | disposition home or self-care (01) ==
LOC: ER 15:49 → MEDSURG 18:19
PROVIDERS: Emergency Medicine; Admitting Provider Internal Medicine; Emergency Provider Emergency Medicine; PCP Family Medicine; Visit Provider Student in an Organized Health Care Education/Training Program
DX: I26.99 Other pulmonary embolism without acute cor pulmonale (principal); F17.200 Nicotine dependence, unspecified, uncomplicated
CPT/HCPCS: 36415; 71045; 71275; 80048; 81241; 82607; 82746; 83090; 83540; 83550; 83690; 83880; 84484; 84703; 85025; 85246; 85300; 85378; 87426; 87635; 93005; 93306; 93970; 96372; 96374; 99285; G0378; J1650; J1885; J2270; Q9967

== ENCOUNTER 2021-02-11 14:00 | Outpatient (CLI) | payer OTHER, SELFPAY ==
[2021-02-11 16:29] LABS: Basophils # 0.1 10^3/uL (0.0-0.1); Basophils % 0.6 %; Eosinophils # 0.2 10^3/uL (0.0-0.8); Eosinophils % 2.3 %; Hematocrit 38.6 % (37.0-47.0); Hemoglobin 12.2 g/dL (11.5-15.3); Lymphocytes # 3.1 10^3/uL (0.8-4.8); Lymphocytes % 32.7 %; Mean Corpuscular HGB Conc 31.6 g/dL (30.0-36.0); Mean Corpuscular Hemoglobin 27.1 pg (28.0-34.0); Mean Corpuscular Volume 85.8 fl (81-99); Mean Platelet Volume 9.6 fL (7.4-10.4); Monocytes # 0.7 10^3/uL (0.2-0.9); Neutrophils # 5.38 10^3/uL (1.8-7.7); Neutrophils % 57.1 %; Nucleated Red Blood Cells % 0 %; Platelet Count 300 10^3/cmm (130-400); Red Cell Distribution Width 14.7 % (12.1-15.1); White Blood Count 9.4 10^3/uL (4.0-10.0)
--- NOTE | 2021-02-11 17:29 | ONC CON_ITS ---
Dr. Carrillo New Patient Note Patient: Annelise Cervantes Unit #: [id number]: 1980 Dicatated By: Anmol Carrillo M.D.Date of Visit: Feb 11, 2021 Onc MED New Patient/Consult Referring Physician: [facility] Chief Complaint: Pulmonary emboli/anemia. History of Present Illness: This is a 40-year-old woman with bilateral pulmonary emboli. She also has iron deficiency anemia. She has been in good general health. On 01/09/2021 she presented to the emergency room with a 2-week history of chest pain and shortness of breath. It had been preceded by cough and chest congestion, for which she had been given antibiotic therapy and steroid. She was negative for COVID-[address] pulmonary angiogram showed fairly extensive pulmonary emboli bilaterally, though it was nonocclusive. There was probable associated pulmonary infarction involving the left lower lobe basilar segments. She was admitted to the hospital after starting anticoagulation with Lovenox. Her subsequent venous Doppler studies showed no evidence of lower extremity deep vein thrombosis. Her laboratory evaluation showed borderline low hemoglobin at 12.2 g with white blood cell count 15,300 and platelet count 288,000. Her serum iron studies show low transferrin saturation at 4.5%, consistent with iron deficiency. B12 and folate levels were normal. She had a limited thrombophilia evaluation which included a normal antithrombin III level at 109% and a negative factor V Leiden mutation study. She was discharged home on anticoagulation with apixaban and on iron supplementation with ferrous gluconate. She says that she has a little more energy now, and she is back to normal activities. ECOG score is 0. Her appetite has increased, as she did stop smoking 1 month ago. She has not had fever or night sweats. Her cough has resolved and her breathing is better, though she still has mild exertional dyspnea. She has had complete resolution of the chest pain. She has no GI complaints other than her bowels have been slow with her iron supplement. She has no complaints with bladder function. She has tended to have heavy menstrual periods, and those have worsened somewhat on the apixaban. She has no significant joint or bone pain. She has just occasional headache. She has no focal neurologic symptoms. She does not report easy bruising and she has had no bleeding other than heavy menstruation. She has no prior history of thromboembolism. She has had one which was uncomplicated and she had no adverse effects with subsequent oral contraception. She does have a significant family history for thromboembolism which includes her mother, brother, her maternal grandmother, paternal aunt, and a cousin on her mother's side of family. Past Medical History: Her medical history is otherwise unremarkable. Past Surgical History: Her only prior surgery was a tonsillectomy. Medications: Eliquis 5 mg (of 5 mg) Tablet Oral b.i.d., Famotidine 1 Tablet (of 20 mg) Oral daily PRN, Ferrous Gluconate 1 Tablet (of 324 (37.5 fe) mg) Oral b.i.d., Melatonin 2 Tablet (of 10 mg) Oral at bedtime PRN, traMADol HCl 1 Tablet (of 50 mg) Oral b.i.d. PRN Allergies: No Known Allergies. Social History: Ms. Cervantes is . 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 She has a history of smoking 1 pack of cigarettes daily. She quit smoking 1 month ago. She has just very occasional alcohol use. Family History: Father at age 71 with liver cirrhosis, thought to be associated with agent orange exposure. Her mother is still living at age 61. She has a history of lower extremity deep vein thrombosis. A brother was treated for pulmonary embolism in his 40s. Her maternal grandmother, a maternal aunt, and a niece on her mother's side of the family have also had blood clots. Her grandmother has also been treated for bilateral breast cancer. Two other brothers and a sister are in good health. Her 17-year-old daughter also is in good health. Review Of Symptoms: Constitutional - She has a little more energy now than she did. She is back to normal activity. Her appetite is increased since she quit smoking. She does not have fever or night sweats. She occasionally feels warm at night. ECOG score is 0, Eyes - No change in vision, ENMT - No hearing loss or tinnitus. She sometimes has sinus drainage. No mouth sores. No sore throat or difficulty swallowing, Hematologic/Lymphatic - No abnormal bruising, Respiratory - She still has mild exertional dyspnea, but her breathing is better. She no longer has cough, and her chest pain has resolved. She has had no hemoptysis, Cardiovascular - No angina pain. No palpitations, Gastrointestinal - No nausea or vomiting. She has a little bit of acid reflux. She has had some constipation with the iron supplement. No blood in the stool or black stools, Genitourinary (F) - No dysuria or hematuria. No urinary frequency. No urgency or incontinence. She has been having heavy menstrual periods, that has worsened somewhat since she has been on anticoagulation, Musculoskeletal - She occasionally has mild aching in the hips. She has no other joint or bone pain, Integumentary - No skin rash or other skin changes, Neurologic - She has just occasional headache. No dizziness. No numbness or tingling. No other focal neurologic symptoms, Psychiatric - No anxiety or depression. No insomnia. Vital Signs: Performed on Feb 11, 2021 15:01: 3, 0, 41.97 (HIGH), 2.24 sq.m, 66.0 in, 99 %, 81 /min, 18 /min, 122/84 mm(hg), 97.9 F (LOW), and 260.0 lbs (HIGH). Physical Examination: Constitutional - She appears to be in good general health, Eyes - Sclerae nonicteric. Conjunctivae clear, ENMT - No lesions noted in the oral cavity, Neck - No mass or thyromegaly, Hematologic/Lymphatic - No cervical, clavicular, or axillary adenopathy, Respiratory - Lungs are clear with good air movement bilaterally, Cardiovascular - Heart rhythm is regular. There is no murmur, gallop, or rub noted, Abdomen - Mildly distended. Liver and spleen are not enlarged. There is no abdominal mass or ascites noted and there is no inguinal adenopathy, Back/Spine - No spine or CVA tenderness noted, Extremities - No edema. Pedal pulses are palpable bilaterally, Integumentary - No rashes. No suspicious skin lesions noted, Neurologic - No focal neurologic deficits noted. Problem List: 1. Bilateral pulmonary emboli, unprovoked. 2. She has a significant family history for thromboembolism. 3. Iron deficiency anemia. Problems Addressed with this Encounter and Plan: 1. Patient with an episode of significant bilateral pulmonary emboli which appears to have been unprovoked. She has a significant family history for thromboembolism, which further increases the likelihood of an underlying thrombophilia. Her initial evaluation did include a normal antithrombin III level and a negative factor V Leiden mutation study. We discussed the fact that with a significant episode of unprovoked pulmonary emboli she will be recommended to continue long-term anticoagulation. As such, the identification of an underlying thrombophilia is not going to change her management, but it may have implication for other family members. To that end, she will have additional laboratory studies today to include protein C and protein S levels, a prothrombin gene mutation study, an anticardiolipin antibody profile and a beta-2 glycoprotein antibody profile. She will have further evaluation as indicated. In the meantime, I also will schedule follow-up CT pulmonary angiogram to make sure that her her emboli are resolving. 2. She has iron deficiency anemia. At least some component is almost certainly due to heavy menstrual blood loss, which appears to be an ongoing issue. She also may have a component of inadequate oral iron absorption, and thus far she appears to be having some difficulty tolerating the oral iron supplement. Her laboratory studies also will include CBC, TIBC, and ferritin level. If she is not able to correct the iron deficiency or she is not able to tolerate the oral iron at a sufficient dosage, she will be given the option to have parenteral iron replacement. Signed By: Anmol Carrillo M.D. <<Signature on File>>
[2021-02-11 17:49] LABS: Alanine Aminotransferase 19 U/L (0-33); Alkaline Phosphatase 86 IU/L (35-105); Anion Gap 17.1 (5-19); Aspartate Amino Transferase 16 U/L (0-32); Blood Urea Nitrogen 12 mg/dL (6-20); Calcium 9.5 mg/dL (8.5-10.5); Carbon Dioxide 20 mmol/L (22-29); Chloride 104 mmol/L (98-107); Ferritin 33 ng/mL (15-150); Glomerular Filtration Rate 111.3 mL/min (90-130); Glucose 116 mg/dL (65-115); Iron 29 ug/dL (37-145); Osmolality Calculated 285 mOsm/kg (285-295); Percent Saturation 9.2 % (20-50); Potassium 4.1 mmol/L (3.5-5.1); Sodium 137 mmol/L (136-145); Thyroid Stimulating Hormone 1.66 uIU/mL (0.27-4.20); Total Bilirubin 0.2 mg/dL (0.15-1.2); Total Iron Binding Capacity 314 mcg/dl; Unsaturated Iron Binding 285 ug/dL (112-347)
[2021-02-15 02:28] LABS: CARDIOLIPIN AB (IGA) <2.0 APL-U/mL; CARDIOLIPIN AB (IGG) <2.0 GPL-U/mL; CARDIOLIPIN AB (IGM) <2.0 MPL-U/mL
[2021-02-16 03:43] LABS: Beta 2 Glycoprotein IGA <2.0 U/mL (<20.0); Beta 2 Glycoprotein IGG <2.0 U/mL (<20.0); Beta 2 Glycoprotein IGM <2.0 U/mL (<20.0)
[2021-02-17 18:17] LABS: PROTHROMBIN (FACTOR II) 20210G NEGATIVE
== END 2021-02-11 14:01 | disposition home or self-care (01) ==
LOC: ONCMED 14:04
PROVIDERS: PCP Family Medicine; Visit Provider Internal Medicine Medical Oncology
DX: I26.99 Other pulmonary embolism without acute cor pulmonale (principal); D50.9 Iron deficiency anemia, unspecified; N92.0 Excessive and frequent menstruation with regular cycle; Z79.01 Long term (current) use of anticoagulants; Z79.899 Other long term (current) drug therapy; Z83.2 Family history of diseases of the blood and blood-forming organs and certain disorders involving the immune mechanism
CPT/HCPCS: 36415; 80053; 82728; 83540; 83550; 84443; 85025; 85210; 85303; 85305; 86146; 86147; 99205

== ENCOUNTER 2021-02-19 10:33 | Outpatient (CLI) | payer OTHER, SELFPAY ==
--- NOTE | 2021-02-19 10:36 | CT_ITS ---
WS: [id number] CT CHEST ANGIOGRAPHY WITH REFORMATS HISTORY: FOLLOW UP PULMONARY EMBOLI TECHNIQUE: Contiguous axial images are obtained through the chest during arterial injection of intrav enous contrast. Images are reconstructed to evaluate the pulmonary arteries. MIP imaging also reviewe d. All CT scans at [facility] use at least one of these dose optimization techniques: automat ed exposure control; mA and/or kV adjustment per patient size (includes targeted exams where dose is matched to clinical indication); or iterative reconstruction. CONTRAST: Omnipaque 350; 80 mL IV. DLP: 601.69 mGy.cm COMPARISON: 01/09/2021 Very good opacification of the pulmonary artery. Pulmonary artery is normal size. There is a thin res idual thrombus centered within the lumen of the proximal LEFT lower lobe segmental branch. This is at the area of the largest clot burden seen on the prior examination. No new thrombus is identified. No rmal size aorta. There is near complete resolution of the previously described airspace opacification s in the LEFT lower lobe. There is just very minimal interstitial thickening and subsegmental scar an d now present. No mass or nodules. No RIGHT heart strain. Very mild prominence of the cardiac chamber s. No pericardial or pleural effusion. Mildly prominent, likely reactive lymph nodes in the hilar regions bilaterally. These were also prese nt on the prior study but not significant enlargement. The largest measures 10 mm at the RIGHT hilum. No hiatal hernia. Very slight tricuspid regurgitation into hepatic vein. There is a large incompletely visualized low-a ttenuation mass centered in the LEFT renal pelvis. This is probably parapelvic cysts. Incompletely vi sualized on this examination. No adrenal mass. No osseous abnormalities. CT/CT angio chest PE protcl [id number] IMPRESSION: 1. Nonocclusive linear thrombus centered in the lumen of the LEFT lower lobe s egmental pulmonary artery. Consistent with resolving emboli. No new emboli. No progression of disease. Significant improvement. 2. No RIGHT heart strain. 3. Near complete resolution of the opacification in the LEFT lower lobe since 01/09/2021. 4. Incompletely visualized cystic mass centered in the LEFT renal pelvis. Favo r this is probably a parapelvic cysts but cannot be further evaluated. Consider follow-up LEFT renal ultrasound for characterization.
[2021-02-19] MEDS: iohexol 350 mg/mL 100 mL Btl IV (10:50)
== END 2021-02-19 10:34 | disposition home or self-care (01) ==
LOC: RAD 10:35
PROVIDERS: PCP Family Medicine; Visit Provider Internal Medicine Medical Oncology
DX: I26.99 Other pulmonary embolism without acute cor pulmonale (principal); N28.89 Other specified disorders of kidney and ureter
CPT/HCPCS: 71275

== ENCOUNTER 2021-04-10 14:38 | Outpatient (CLI) | payer OTHER, SELFPAY ==
--- NOTE | 2021-04-10 | US_ITS ---
WS: [id number] RENAL ULTRASOUND HISTORY: ABNORMAL CT COMPARISON: 02/19/2021 and 01/09/2021 TECHNIQUE: 2-D and color Doppler imaging of the kidney submitted. Right kidney: 11.2 cm x 5.3 cm x 4.3 cm. Normal echogenicity with no hydronephrosis or mass. Left kidney: 12.8 cm x 7.4 cm x 7.1 cm. Normal size kidney. Again noted is a cystic mass in the LEFT renal pelvis. This cystic mass is lobula laurie and there are a few small septations identified. This mass extends from the RIGHT renal pelvis me dially as seen on the CT. Mass measures approximately 4.7 x 5.1 cm. No increased vascularity. Aorta: Normal. Urinary Bladder: Well-distended. US/US renal BI* [id number] IMPRESSION: 1. Lobulated cystic mass with a few septations centered in the renal pelvis of the LEFT kidney. This needs to be further evaluated by CT with and without con trast. This could be multiloculated parapelvic cyst with extension extrarenal. This was not definitely seen on the prior CT from 01/09/2021. May not have been included. This may be a complicated or complex cyst but needs to be further vivian luated by CT with and without contrast. Cannot exclude mild central hydronephro sis. 2. RIGHT kidney is negative.
== END 2021-04-10 14:39 | disposition home or self-care (01) ==
PROVIDERS: PCP Family Medicine; Visit Provider Internal Medicine Medical Oncology
DX: I26.99 Other pulmonary embolism without acute cor pulmonale (principal); D50.8 Other iron deficiency anemias
CPT/HCPCS: 76770

== ENCOUNTER 2021-04-24 12:01 | Outpatient (CLI) | payer OTHER, SELFPAY ==
--- NOTE | 2021-04-24 12:15 | CTR_ITS ---
PROCEDURE INFORMATION: Exam: CT Abdomen And Pelvis Without And With Contrast Exam date and time: 04/24/2021 1:57 PM Age: 40 years old Clinical indication: Abdominal pain; Other: Left kidney; Additional info: Pe w/o acute cor pulmonale TECHNIQUE: Imaging protocol: Computed tomography of the abdomen and pelvis without and with contrast. Axial, coronal and sagittal reformatted images were created and reviewed. Radiation optimization: All CT scans at this facility use at least one of these dose optimization techniques: automated exposure control; mA and/or kV adjustment per patient size (includes targeted exams where dose is matched to clinical indication); or iterative reconstruction. Contrast material: OMNI 300; Contrast volume: 95 ml; Contrast route: INTRAVENOUS (IV); COMPARISON: US renal BI* [id number] 04/10/2021 3:11 PM RADIATION DOSE METRICS: Total DLP (mGy-cm): 2454.42 FINDINGS: Diaphragm: Elevated left hemidiaphragm. Liver: Subtle subcentimeter low-density lesions in the right hepatic lobe, measuring up to 7 mm, too small to characterize. Gallbladder and bile ducts: No radiodense gallstones. No biliary ductal dilatation. Pancreas: Unremarkable. Spleen: Unremarkable. Adrenal glands: Normal. No mass. Kidneys and ureters: 6.1 x 4.2 cm left renal parapelvic cyst (no follow-up is indicated based on the imaging appearance). No radiodense calculi. No hydronephrosis. Stomach and bowel: No bowel wall thickening. No obstruction. No pneumatosis. Appendix: Normal. Intraperitoneal space: No free fluid. No organized fluid collection. No free air. Vasculature: Unremarkable. No aneurysm. Lymph nodes: No pathologically enlarged lymph nodes. Urinary bladder: Unremarkable as visualized. Reproductive: Probable involuting left ovarian corpus luteal cyst. Bones/joints: No acute osseous abnormality. Mild degenerative changes. Soft tissues: Unremarkable. CT/CT abdomen pelvis wo/w [id number] IMPRESSION: 1. No CT evidence of acute intra-abdominal or pelvic pathology. 2. Additional findings, as above.
[2021-04-24] MEDS: iohexol 300 mg/mL 50 mL Btl PO (12:39)
[2021-04-24] MEDS: iohexol 300 mg/mL 100 mL Btl IV (12:40)
== END 2021-04-24 12:02 | disposition home or self-care (01) ==
LOC: RAD 12:08
PROVIDERS: PCP Family Medicine; Visit Provider Internal Medicine Medical Oncology
DX: I26.99 Other pulmonary embolism without acute cor pulmonale (principal); R10.9 Unspecified abdominal pain
CPT/HCPCS: 74178

== ENCOUNTER 2021-05-19 09:23 | Outpatient (CLI) | payer OTHER, SELFPAY ==
[2021-05-19 09:49] LABS: Basophils # 0.1 10^3/uL (0.0-0.1); Basophils % 0.6 %; Eosinophils # 0.2 10^3/uL (0.0-0.8); Eosinophils % 2.3 %; Hematocrit 38.4 % (37.0-47.0); Hemoglobin 12.9 g/dL (11.5-15.3); Lymphocytes # 2.3 10^3/uL (0.8-4.8); Lymphocytes % 25.8 %; Mean Corpuscular HGB Conc 33.6 g/dL (30.0-36.0); Mean Corpuscular Hemoglobin 29.5 pg (28.0-34.0); Mean Corpuscular Volume 87.9 fl (81-99); Mean Platelet Volume 9.2 fL (7.4-10.4); Monocytes # 0.9 10^3/uL (0.2-0.9); Monocytes % 9.9 %; Neutrophils # 5.42 10^3/uL (1.8-7.7); Neutrophils % 61.1 %; Nucleated Red Blood Cells % 0 %; Platelet Count 263 10^3/cmm (130-400); Red Blood Count 4.37 10^6/uL (4.1-5.3); Red Cell Distribution Width 13.4 % (12.1-15.1); White Blood Count 8.9 10^3/uL (4.0-10.0)
[2021-05-19 11:21] LABS: Ferritin 54 ng/mL (15-150); Iron 67 ug/dL (37-145)
[2021-05-19 11:32] LABS: Percent Saturation 22.6 % (20-50); Total Iron Binding Capacity 296 mcg/dl; Unsaturated Iron Binding 229 ug/dL (112-347)
--- NOTE | 2021-05-21 21:57 | ONC FU_ITS ---
Jessica Sierra Progress Note Patient: Annelise Cervantes Unit #: [id number]: [id number] Dicatated By: Jessica Sierra N.P.Date of Visit:May 19, 2021 Onc MED Follow-up/Prog Note Chief Complaint: Pulmonary emboli/anemia. History of Present Illness: This is a 40-year-old woman with bilateral pulmonary emboli. She also has iron deficiency anemia. She has been in good general health. On 01/09/2021 she presented to the emergency room with a 2-week history of chest pain and shortness of breath. It had been preceded by cough and chest congestion, for which she had been given antibiotic therapy and steroid. She was negative for COVID-[address] pulmonary angiogram showed fairly extensive pulmonary emboli bilaterally, though it was nonocclusive. There was probable associated pulmonary infarction involving the left lower lobe basilar segments. She was admitted to the hospital after starting anticoagulation with Lovenox. Her subsequent venous Doppler studies showed no evidence of lower extremity deep vein thrombosis. Her laboratory evaluation showed borderline low hemoglobin at 12.2 g with white blood cell count 15,300 and platelet count 288,000. Her serum iron studies show low transferrin saturation at 4.5%, consistent with iron deficiency. B12 and folate levels were normal. She had a limited thrombophilia evaluation which included a normal antithrombin III level at 109% and a negative factor V Leiden mutation study. She was discharged home on anticoagulation with apixaban and on iron supplementation with ferrous gluconate. She says that she has a little more energy now, and she is back to normal activities. ECOG score is 0. Her appetite has increased, as she did stop smoking 1 month ago. She has not had fever or night sweats. Her cough has resolved and her breathing is better, though she still has mild exertional dyspnea. She has had complete resolution of the chest pain. She has no GI complaints other than her bowels have been slow with her iron supplement. She has no complaints with bladder function. She has tended to have heavy menstrual periods, and those have worsened somewhat on the apixaban. She has no significant joint or bone pain. She has just occasional headache. She has no focal neurologic symptoms. She does not report easy bruising and she has had no bleeding other than heavy menstruation. She has no prior history of thromboembolism. She has had one which was uncomplicated and she had no adverse effects with subsequent oral contraception. She does have a significant family history for thromboembolism which includes her mother, brother, her maternal grandmother, paternal aunt, and a cousin on her mother's side of family. Patient presents today for follow-up. She has been feeling well. Her appetite is good. She denies fever, chills, night sweats. No sinus drainage or mouth sores. No shortness of breath, cough, chest pain. Her GI and systems are within normal limits. No joint or bone pain. No headaches or dizziness. Review Of Symptoms: See above. Past Medical History: Ms. Cervantes's medical history is unremarkable. Past Surgical History: Tonsillectomy Allergies: No Known Allergies. Medications: Daily [employer] Formula 1 Tablet Oral daily Eliquis 5 mg (of 5 mg) Tablet Oral b.i.d. Famotidine 1 Tablet (of 20 mg) Oral daily PRN Ferrous Gluconate 1 Tablet (of 324 (37.5 fe) mg) Oral b.i.d. Melatonin 2 Tablet (of 10 mg) Oral at bedtime PRN traMADol HCl 1 Tablet (of 50 mg) Oral b.i.d. PRN Vitamin C 1 Tablet (of 500 mg) Oral daily ZyrTEC Allergy 1 Tablet (of 10 mg) Oral daily Family History: Father at age 71 with liver cirrhosis, thought to be associated with agent orange exposure. Her mother is still living at age 61. She has a history of lower extremity deep vein thrombosis. A brother was treated for pulmonary embolism in his 40s. Her maternal grandmother, maternal aunt, and a niece on her mother's side of the family have also had blood clots. Her grandmother has also been treated for bilateral breast cancer. Two other brothers and a sister are in good health. Her 17-year-old daughter also is in good health. Social History: Ms. Cervantes is single. Ms. Cervantes quit smoking less than one year ago but had smoked 1.0 pack/day for 23 years. She drinks occasionally. 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 She has a history of smoking 1 pack of cigarettes daily. She quit smoking 1 month ago. She has just very occasional alcohol use. Physical Examination: Performed on May 19, 2021 12:25: Height - 66.00 in, Weight - 272.4 lbs (HIGH), BSA - 2.28 sq.m, BMI - 43.97 (HIGH), Temperature - 97.3 F (LOW), Pulse - 84 /min, Respiration - 16 /min, BP - 139/83 mm(hg), O2 Sat - 99 %, Pain - 0, and Fatigue - 6. Performance Status: 0 - Fully active, able to carry on all predisease activities without restrictions. (ECOG) Constitutional Alert, cooperative, oriented. Mood and affect appropriate. Appears close to chronological age. Well nourished. Well developed. Head Normocephalic; no scars. Respiratory Lungs are clear to auscultation without rhonchi or wheezing. Cardiovascular Regular rate and rhythm of heart without murmurs, gallops or rubs. Abdomen Non-tender, non-distended, no masses, ascites or hepatosplenomegaly. Good bowel sounds. No guarding or rebound tenderness. Extremities No visible deformities, no cyanosis, clubbing or edema. Pulses 3+ and equal bilaterally. Musculoskeletal No tenderness or swelling, normal range of motion without obvious weakness. Psychiatric Alert and oriented times three. Coherent speech. Verbalizes understanding of our discussions today. Laboratory: Test performed on May 19, 2021 10:50 Ferritin 54 ng/mL Iron 67 mcg/dL Iron Binding Capacity (TIBC) 296 mcg/dl % Iron Saturation 22.6 % UIBC 229 mcg/dL Test performed on May 19, 2021 09:35 WBC 8.9 10 3/uL RBC 4.37 10 6/uL HGB 12.9 g/dL HCT 38.4 % MCV 87.9 fl MCH 29.5 pg MCHC 33.6 g/dL RDW 13.4 % Platelet Count 263 10 3/cmm MPV 9.2 fL Neutrophils 5.42 10 3/uL Lymphocytes 2.3 10 3/uL Monocytes 0.9 10 3/uL Eosinophils 0.2 10 3/uL Basophils 0.1 10 3/uL Neutrophil % 61.1 % Lymphocyte % 25.8 % Monocyte % 9.9 % Eosinophil % 2.3 % Basophils % 0.6 % NRBC % 0 % Test performed on Feb 11, 2021 16:10 Sodium 137 mmol/L TSH 1.66 uIU/mL Potassium 4.1 mmol/L Chloride 104 mmol/L CO2 20 mmol/L Anion Gap 17.1 BUN 12 mg/dL Creatinine 0.6 mg/dL Cr Clearance (Est) 234.3700 mL/min eGFR 111.3 mL/min Glucose 116 mg/dL Osmolality - Calculated 285 mOsm/kg Calcium 9.5 mg/dL Protein, Total 7.0 g/dL Albumin 4.0 g/dL Globulin 3.0 g/dL Bilirubin, Total 0.2 mg/dL ALT (SGPT) 19 U/L AST (SGOT) 16 U/L Alkaline Phosphatase 86 IU/L Impression: 1. Bilateral pulmonary emboli, unprovoked. 2. She has a significant family history for thromboembolism. 3. Iron deficiency anemia. Plan: 1. Patient with an episode of significant bilateral pulmonary emboli which appears to have been unprovoked. She has a significant family history for thromboembolism, which further increases the likelihood of an underlying thrombophilia. Her initial evaluation did include a normal antithrombin III level and a negative factor V Leiden mutation study. On 04/24/2021, patient had a CT abdomen and pelvis with and without contrast due to abdominal pain. The findings indicated a subtle subcentimeter low-density lesion in the right hepatic lobe measuring up to 7 mm too small to characterize. And a 6.1 x 4.2 cm left renal parapelvic cyst. Due to these findings we will repeat his CT scan of abdomen and pelvis prior to her return appointment in 6 months. 2. Patient has iron deficiency anemia secondary to heavy menstrual cycles. She has been taking oral iron. Her hemoglobin today is 12.9 and her iron studies are within normal limits. We will have her return to the clinic in 6 months with CBC, iron saturation and ferritin. Signed By: Jessica Sierra, N.P. <<Signature on File>>
== END 2021-05-19 09:24 | disposition home or self-care (01) ==
PROVIDERS: PCP Family Medicine; Visit Provider Nurse Practitioner Family
DX: I26.99 Other pulmonary embolism without acute cor pulmonale (principal); D50.9 Iron deficiency anemia, unspecified; Z79.01 Long term (current) use of anticoagulants; Z79.899 Other long term (current) drug therapy; Z87.891 Personal history of nicotine dependence; Z86.718 Personal history of other venous thrombosis and embolism
CPT/HCPCS: 36415; 82728; 83540; 83550; 85025; 99214

== ENCOUNTER 2021-07-08 09:38 | Outpatient (CLI) | payer OTHER, SELFPAY ==
--- NOTE | 2021-07-08 09:55 | MM_ITS ---
WS: [id number] Bilateral screening 3D tomosynthesis digital mammogram, 07/08/2021 Clinical Data: SCREENING Comparison: None. Findings: The breast parenchymal pattern shows air ingenious density No spiculated masses or clustered calcific ations are seen. There are no secondary signs of carcinoma. MM/[place] [id number] Impression: 1. Negative bilateral mammogram with no prior exam for review. 2. Recommend annual screening mammograms. BIRADS: 1-Negative FOLLOW UP: 1 Year Follow-up The CAD seam checker was used.
== END 2021-07-08 09:39 | disposition home or self-care (01) ==
LOC: RAD 09:42
PROVIDERS: PCP Family Medicine; Visit Provider Clinical Nurse Specialist Adult Health
DX: Z12.31 Encounter for screening mammogram for malignant neoplasm of breast (principal)
CPT/HCPCS: 77063; 77067

== ENCOUNTER → 2021-08-19 23:44 | Outpatient (BNVA) | payer OTHER, SELFPAY | PROVIDERS: PCP Family Medicine; Visit Provider Family Medicine | DX: R53.83 Other fatigue (principal); M79.89 Other specified soft tissue disorders; D50.9 Iron deficiency anemia, unspecified; I26.99 Other pulmonary embolism without acute cor pulmonale | CPT/HCPCS: 85025 ==

== ENCOUNTER 2021-11-25 15:00 | Oncology outpatient (recurring) (ONCR) | payer MEDICAID, SELFPAY ==
[2021-11-24 14:55] LABS: Basophils # 0.1 10^3/uL (0.0-0.1); Basophils % 0.8 %; Eosinophils # 0.3 10^3/uL (0.0-0.8); Eosinophils % 2.7 %; Hematocrit 38.9 % (37.0-47.0); Hemoglobin 12.6 g/dL (11.5-15.3); Lymphocytes % 29.4 %; Mean Corpuscular HGB Conc 32.4 g/dL (30.0-36.0); Mean Corpuscular Hemoglobin 29.2 pg (28.0-34.0); Mean Corpuscular Volume 90.3 fl (81-99); Mean Platelet Volume 9.2 fL (7.4-10.4); Monocytes # 0.6 10^3/uL (0.2-0.9); Monocytes % 5.9 %; Neutrophils # 6.27 10^3/uL (1.8-7.7); Neutrophils % 60.9 %; Nucleated Red Blood Cells % 0 %; Platelet Count 300 10^3/cmm (130-400); Red Blood Count 4.31 10^6/uL (4.1-5.3); Red Cell Distribution Width 13.1 % (12.1-15.1); White Blood Count 10.3 10^3/uL (4.0-10.0)
[2021-11-25 16:49] LABS: Alanine Aminotransferase 16 U/L (0-33); Albumin Level 3.6 g/dL (3.5-5.2); Alkaline Phosphatase 89 U/L (35-105); Aspartate Amino Transferase 15 U/L (0-32); Blood Urea Nitrogen 12 mg/dL (6-20); Calcium 9.1 mg/dL (8.5-10.5); Carbon Dioxide 23 mmol/L (22-29); Chloride 105 mmol/L (98-107); Ferritin 94 ng/mL (15-150); Globulin 3.6 g/dL (1.3-4.6); Glomerular Filtration Rate 136.6 mL/min (90-130); Glucose 93 mg/dL (65-115); Iron 44 ug/dL (37-145); Osmolality Calculated 283 mOsm/kg (285-295); Percent Saturation 16.2 % (20-50); Sodium 137 mmol/L (136-145); Total Bilirubin 0.2 mg/dL (0.15-1.2); Total Iron Binding Capacity 271 mcg/dl; Total Protein 7.2 g/dL (6.6-8.7); Unsaturated Iron Binding 227 ug/dL (112-347)
[2021-11-25 16:52] LABS: Anion Gap 12.8 (5-19); Potassium 3.8 mmol/L (3.5-5.1)
== END 2021-12-07 23:59 | disposition home or self-care (01) ==
PROVIDERS: PCP Family Medicine; Visit Provider Internal Medicine Medical Oncology
DX: D50.8 Other iron deficiency anemias (principal); I26.99 Other pulmonary embolism without acute cor pulmonale
CPT/HCPCS: 36415; 80053; 82728; 83540; 83550; 85025

== ENCOUNTER 2021-12-30 14:00 | Outpatient (CLI) | payer MEDICAID, SELFPAY ==
[2021-12-30] MEDS: iohexol 350 mg/mL 100 mL Btl PO (15:13)
[2021-12-30] MEDS: iohexol 350 mg/mL 500 mL Btl (per mL) IV (15:13)
--- NOTE | 2021-12-30 15:30 | CTR_ITS ---
PROCEDURE INFORMATION: Exam: CT Abdomen And Pelvis Without And With Contrast Exam date and time: 12/30/2021 3:43 PM Age: 41 years old Clinical indication: Condition or disease; Liver condition and other: Renal cyst; Other: Lesions; Additional info: Renal cyst, liver lesions TECHNIQUE: Imaging protocol: Computed tomography of the abdomen and pelvis without and with contrast. Axial, coronal and sagittal reformatted images were created and reviewed. Radiation optimization: All CT scans at this facility use at least one of these dose optimization techniques: automated exposure control; mA and/or kV adjustment per patient size (includes targeted exams where dose is matched to clinical indication); or iterative reconstruction. Contrast material: OMNI 350; Contrast volume: 0.95 ml; Contrast route: INTRAVENOUS (IV); COMPARISON: CT abdomen pelvis wo/w [id number] 04/24/2021 1:57 PM RADIATION DOSE METRICS: Total DLP (mGy-cm): 3174.43 FINDINGS: Liver: Several subcentimeter low-density hepatic lesions, suggestive of benign hemangiomas. Gallbladder and bile ducts: No radiodense gallstones. No biliary ductal dilatation. Pancreas: Unremarkable. Spleen: Unremarkable. Adrenal glands: Normal. No mass. Kidneys and ureters: 6.4 x 3.9 cm left renal parapelvic cyst (no follow-up is indicated based on the imaging appearance). No radiodense calculi. No hydronephrosis. Stomach and bowel: No bowel wall thickening. No obstruction. No pneumatosis. Appendix: Normal. Intraperitoneal space: No free fluid. No organized fluid collection. No free air. Vasculature: Unremarkable. No aneurysm. Lymph nodes: No pathologically enlarged lymph nodes. Urinary bladder: Unremarkable as visualized. Reproductive: Unremarkable. Bones/joints: No acute osseous abnormality. Soft tissues: Unremarkable. CT/CT abdomen pelvis wo/w [id number] IMPRESSION: 1. 6.4 x 3.9 cm left renal parapelvic cyst (no follow-up is indicated based on the imaging appearance). 2. Several subcentimeter low-density hepatic lesions, suggestive of benign hemangiomas. 3. Additional findings, as above. COMMENTS: Consistent with the [employer]'s Incidental Findings Committee white paper (J Am Stefan Radiol 2018): Any incidental renal lesion less than 1 cm or classified as too small to characterize, or any incidental cystic renal lesion characterized as simple-appearing, is likely benign. No follow-up imaging is recommended for these lesions per consensus recommendations based on imaging criteria.
== END 2021-12-30 14:01 | disposition home or self-care (01) ==
LOC: RAD 14:04
PROVIDERS: PCP Family Medicine; Visit Provider Internal Medicine Medical Oncology
DX: K76.9 Liver disease, unspecified (principal); N28.1 Cyst of kidney, acquired
CPT/HCPCS: 74178; Q9967

== ENCOUNTER 2022-03-10 13:19 | Oncology outpatient (recurring) (ONCR) | payer MEDICAID, SELFPAY ==
[2022-03-10 14:09] LABS: Basophils # 0.1 10^3/uL (0.0-0.1); Basophils % 0.6 %; Eosinophils # 0.2 10^3/uL (0.0-0.8); Eosinophils % 2.6 %; Hematocrit 39.2 % (37.0-47.0); Hemoglobin 12.9 g/dL (11.5-15.3); Lymphocytes # 2.6 10^3/uL (0.8-4.8); Lymphocytes % 27.6 %; Mean Corpuscular HGB Conc 32.9 g/dL (30.0-36.0); Mean Corpuscular Hemoglobin 28.9 pg (28.0-34.0); Mean Corpuscular Volume 87.9 fl (81-99); Mean Platelet Volume 9.6 fL (7.4-10.4); Monocytes # 0.7 10^3/uL (0.2-0.9); Monocytes % 7.2 %; Neutrophils # 5.75 10^3/uL (1.8-7.7); Neutrophils % 61.8 %; Nucleated Red Blood Cells % 0 %; Platelet Count 285 10^3/cmm (130-400); Red Blood Count 4.46 10^6/uL (4.1-5.3); Red Cell Distribution Width 13.1 % (12.1-15.1); White Blood Count 9.3 10^3/uL (4.0-10.0)
[2022-03-10 14:35] LABS: Ferritin 82 ng/mL (15-150); Iron 51 ug/dL (37-145); Percent Saturation 18.5 % (20-50); Total Iron Binding Capacity 275 mcg/dl; Unsaturated Iron Binding 224 ug/dL (112-347)
[2022-03-13 23:29] LABS: PROTEIN C, ACTIVITY 98 % normal (70-180)
[2022-03-13 23:48] LABS: Antithrombin III Activity 104 % normal (80-135)
[2022-03-29 15:39] LABS: Miscellaneous Test SEE COMMENTS
== END 2022-04-06 23:59 | disposition home or self-care (01) ==
LOC: ONCMED 13:19
PROVIDERS: PCP Family Medicine; Visit Provider Internal Medicine Medical Oncology
DX: D50.8 Other iron deficiency anemias (principal); I26.99 Other pulmonary embolism without acute cor pulmonale
CPT/HCPCS: 36415; 82728; 83540; 83550; 85025; 85300; 85303; 85305

== ENCOUNTER 2022-07-15 09:23 | Outpatient (CLI) | payer OTHER, MEDICAID, SELFPAY ==
--- NOTE | 2022-07-15 09:32 | MM_ITS ---
WS: [id number] Bilateral screening 3D tomosynthesis digital mammogram, 07/15/2022 Clinical Data: SCREEN Comparison: 07/08/2021 Findings: The breast parenchymal pattern shows heterogeneous density. No spiculated masses or clustered calcifi cations are seen. There are no secondary signs of carcinoma. MM/[place] [id number] Impression: 1. Negative bilateral mammogram unchanged. 2. Recommend annual screening mammograms. BIRADS: 1-Negative FOLLOW UP: 1 Year Follow-up The CAD return checker was used.
== END 2022-07-15 09:24 | disposition home or self-care (01) ==
PROVIDERS: PCP Family Medicine; Visit Provider Family Medicine
DX: Z12.31 Encounter for screening mammogram for malignant neoplasm of breast (principal)
CPT/HCPCS: 77063; 77067

== ENCOUNTER → 2023-01-05 10:10 | Outpatient (BNVA) | payer OTHER, MEDICAID, SELFPAY | PROVIDERS: PCP Family Medicine; Visit Provider Family Medicine | DX: F41.9 Anxiety disorder, unspecified (principal); I26.99 Other pulmonary embolism without acute cor pulmonale; M19.90 Unspecified osteoarthritis, unspecified site | CPT/HCPCS: 80053; 85025; 86140 ==

== ENCOUNTER → 2023-02-02 10:15 | Outpatient (BNVA) | payer OTHER, MEDICAID, SELFPAY | PROVIDERS: PCP Family Medicine; Visit Provider Clinical Nurse Specialist Adult Health | DX: H00.015 Hordeolum externum left lower eyelid (principal); M19.90 Unspecified osteoarthritis, unspecified site; F41.9 Anxiety disorder, unspecified; I26.99 Other pulmonary embolism without acute cor pulmonale | CPT/HCPCS: 85025; 85651 ==

== ENCOUNTER → 2023-07-05 10:52 | Outpatient (BNVA) | payer OTHER, SELFPAY | PROVIDERS: PCP Family Medicine; Visit Provider Family Medicine | DX: F41.9 Anxiety disorder, unspecified (principal); I26.99 Other pulmonary embolism without acute cor pulmonale; D50.8 Other iron deficiency anemias; M19.90 Unspecified osteoarthritis, unspecified site; R40.0 Somnolence | CPT/HCPCS: 83540; 85025; 86140 ==

== ENCOUNTER 2023-07-25 11:03 | Outpatient (CLI) | payer OTHER, SELFPAY ==
--- NOTE | 2023-07-25 11:07 | MM_ITS ---
WS: [id number] BILATERAL SCREENING DIGITAL TOMOSYNTHESIS MAMMOGRAM WITH CAD HISTORY: SCREENING COMPARISON: 07/15/2022, 07/08/2021 Bilateral CC and MLO views with tomosynthesis and synthetic mammography submitted. Computer aided det ection analyzed. Breast composition: The breasts are heterogeneously dense, which may obscure small masses. No suspici ous masses, microcalcifications or architectural distortion. MM/[id number] IMPRESSION: BI-RADS: 1-Negative FOLLOW UP: 1 Year Follow-up
== END 2023-07-25 11:04 | disposition home or self-care (01) ==
LOC: RAD 11:04
PROVIDERS: PCP Family Medicine; Visit Provider Family Medicine
DX: Z12.31 Encounter for screening mammogram for malignant neoplasm of breast (principal); R92.333 Mammographic heterogeneous density, bilateral breasts
CPT/HCPCS: 77063; 77067

== ENCOUNTER → 2023-12-27 09:48 | Outpatient (BNVA) | payer OTHER, SELFPAY | PROVIDERS: PCP Family Medicine; Visit Provider Family Medicine | DX: F41.9 Anxiety disorder, unspecified (principal); I26.99 Other pulmonary embolism without acute cor pulmonale; M19.90 Unspecified osteoarthritis, unspecified site; I10 Essential (primary) hypertension | CPT/HCPCS: 84550; 85025; 86140; 86160; 86162; 86235; 86255; 86376; 86431 ==

== ENCOUNTER 2024-03-13 14:16 | Outpatient (CLI) | payer OTHER, SELFPAY | END 2024-03-13 14:17 | disposition home or self-care (01) | LOC: SLEEP 14:18 | PROVIDERS: PCP Family Medicine; Visit Provider Family Medicine | DX: R40.0 Somnolence (principal) | CPT/HCPCS: G0399 ==

== ENCOUNTER → 2024-04-19 10:28 | Outpatient (BNVA) | payer OTHER, SELFPAY | PROVIDERS: PCP Family Medicine; Referring Provider Family Medicine; Visit Provider Internal Medicine Rheumatology | DX: M06.00 Rheumatoid arthritis without rheumatoid factor, unspecified site (principal); M25.50 Pain in unspecified joint; Z79.899 Other long term (current) drug therapy; M17.11 Unilateral primary osteoarthritis, right knee | CPT/HCPCS: 36415; 73502; 73562; 80076; 82565; 83520; 84439; 84443; 84480; 85025; 85651; 86140; 86200; 86480; 86704; 86803; 87340 ==

== ENCOUNTER 2024-08-02 10:25 | Outpatient (CLI) | payer OTHER, SELFPAY ==
[2024-08-02 12:06] LABS: Chol HDL Ratio 2.91 mg/dL (0.0-4.40); Cholesterol 160 mg/dL (0-200); HDL Cholesterol 55 mg/dL (60-100); LDL Cholesterol Calculated 76 mg/dL (50-129); LDL HDL Ratio 1.38 RATIO (0.00-3.22); Triglycerides 143 mg/dL (0-150)
== END 2024-08-02 10:26 | disposition home or self-care (01) ==
PROVIDERS: PCP Family Medicine; Visit Provider Family Medicine
DX: I26.99 Other pulmonary embolism without acute cor pulmonale (principal); M06.9 Rheumatoid arthritis, unspecified
CPT/HCPCS: 36415; 80061

== ENCOUNTER 2024-09-03 09:20 | Outpatient (CLI) | payer OTHER, SELFPAY ==
--- NOTE | 2024-09-03 09:20 | MM_ITS ---
WS: [id number] BILATERAL SCREENING DIGITAL TOMOSYNTHESIS MAMMOGRAM WITH CAD HISTORY: SCREENING COMPARISON: 07/25/2023, 07/15/2022, 07/08/2021 Bilateral CC and MLO views with tomosynthesis and synthetic mammography submitted. Computer aided detection analyzed. Breast composition: There are scattered areas of fibroglandular density. No suspicious masses, microcalcifications or architectural distortion. No new mass or distortion. No suspicious grouping of calcifications. Stable 5 mm mass in the medial RIGHT breast has been present since 07/15/2022. MM/MM scr tomosynthesis [id number] IMPRESSION: BI-RADS: 2 - Benign. FOLLOW UP: 1 Year Follow-up
[2024-09-03 10:28] LABS: Hematocrit 39.7 % (36-47); Hemoglobin 13.00 g/dL (11.27-16.99); Mean Corpuscular HGB Conc 32.7 g/dL (30-55); Mean Corpuscular Hemoglobin 29.0 pg (27-33); Mean Corpuscular Volume 88.4 fl (85-98); Nucleated Red Blood Cells % 0 %; Platelet Count 292 10^3/cmm (157-399); Red Blood Count 4.49 10^6/uL (3.85-5.65); White Blood Count 9.13 10^3/uL (3.29-11.43)
[2024-09-03 10:53] LABS: Alanine Aminotransferase 25 U/L (0-33); Albumin Level 3.9 g/dL (3.5-5.2); Alkaline Phosphatase 83 U/L (35-105); Aspartate Amino Transferase 15 U/L (0-32); Globulin 3.0 g/dL (1.3-4.6); Total Protein 6.9 g/dL (6.6-8.7)
[2024-09-06 13:55] LABS: Mutated Citrullinated Vimentin 26 U/mL (<20)
== END 2024-09-03 09:21 | disposition home or self-care (01) ==
PROVIDERS: Absent Provider Internal Medicine Rheumatology; PCP Family Medicine; Visit Provider Family Medicine
DX: Z12.31 Encounter for screening mammogram for malignant neoplasm of breast (principal); M06.00 Rheumatoid arthritis without rheumatoid factor, unspecified site; Z79.899 Other long term (current) drug therapy
CPT/HCPCS: 36415; 77063; 77067; 80076; 82565; 83520; 85025; 85651; 86140

== ENCOUNTER → 2024-12-18 12:18 | Outpatient (BNVA) | payer OTHER, SELFPAY | PROVIDERS: PCP Family Medicine; Visit Provider Internal Medicine Rheumatology | DX: M05.79 Rheumatoid arthritis with rheumatoid factor of multiple sites without organ or systems involvement (principal); Z79.899 Other long term (current) drug therapy | CPT/HCPCS: 80076; 82565; 85025; 85651; 86140 ==